=== PATIENT | male | born 1945 | race Caucasian/White ===

== ENCOUNTER → 2017-10-13 15:15 | Outpatient (CLI) | payer MEDICARE, BC, SELFPAY ==
--- NOTE | 2017-10-13 | OV.WND_ITS ---
Progress Note Details Patient Name: Mitchell Galloway Patient Number: [id number] PatientPatientDate: 10/13/2017 Clinician: Lilibeth Zuñiga Clinician Cosigner: Amalia Dawn Physician / Health Program Analyst: Derrick Gardner SUBJECTIVE Chief Complaint This information was obtained from the patient Non-healing wound to right second toe. Allergies carbidopa (Reaction: Increase heart rate.), Coreg (Reaction: Fatigue), iodine ( Reaction: Throat Swelling with Shellfish), Shellfish Containing Products (Reaction: unknown), shellfish derived (Reaction: Shrip/throat swelling), Sudafed (Reaction: Delirium), tomato, Zosyn ( Reaction: Rash Hive) HPI This information was obtained from the patient 10/13/17. Seen by Nicolas Gardner PA-C. This type II diabetic patient is new to our clinic and presents with an ulcer of the right 2nd toe. He explains that he has various reasons and conditions that make him very fatigued when he has to [place] [employer] to [place] and is hoping that we can heal his wound with monthly or less frequent visits. Family History This information was obtained from the patient Cancer - Mother, Father, Lung Disease - Mother Social History This information was obtained from the patient Former smoker - 1966, Caffeine Use - Diet coke occasional, Children - 1, Lives in - Private home, Marital Status - , Retired - Recreational therapist, Transport Concerns - Lives on [facility], [place] Past Medical History This information was obtained from the patient Patient has a medical history of: Type II Diabetes PTSD Charcot Foot Neuropathy Hypertension Gastro Esoph. Reflux Disease (GERD) Lumbago Cardiac Arrest Colon Polyps Hyperlipidemia A-fib Lumbar Spinal stenosis Esophagitis Benign Prostate Hyperplasia (BPH) Surgical History This information was obtained from the patient Patient has a surgical history of: Right rotator cuff repair Appendectomy Pacemaker/Defibrillator Bilateral knee arthroscopy Abdominal hernia repair Complaints and Symptoms This information was obtained from the patient Patient complains of: Neurological: Loss of Protective Sensation Prior Wound History: Drainage Patient denies complaints or symptoms related to: Ear/Nose/Mouth/Throat: Hearing Loss / Aid Gastrointestinal (GI): Difficulty Swallowing, Loss of Appetite Musculoskeletal: Muscle Weakness Neurological: Paralysis Respiratory: Oxygen Use General Notes: Up to date Medications acetaminophen 325 mg tablet oral 1 1 tablet oral every 4-6 hours as needed tramadol 50 mg tablet oral 2 2 tablet oral every 6 hours as needed Jantoven 5 mg tablet oral tablet oral once daily gabapentin 300 mg capsule oral 1 1 capsule oral twice daily metformin 1,000 mg tablet oral 1 1 tablet oral once daily atorvastatin 40 mg tablet oral tablet oral once daily finasteride 5 mg tablet oral 1 1 tablet oral once daily metoprolol succinate ER 50 mg tablet,extended release 24 hr oral 1 1 tablet extended release 24 hr oral twice daily polyethylene glycol (bulk) 100 % powder miscellaneous 1 1 powder miscellaneous once daily torsemide 20 mg tablet oral 1 1 tablet oral multivitamin tablet oral 1 1 tablet oral once daily melatonin 5 mg capsule oral 1 1 capsule oral once daily Aspir-81 81 mg tablet,delayed release oral tablet,delayed release (DR/EC) oral once daily potassium chloride ER 8 mEq tablet,extended release oral 1 1 tablet extended release oral twice daily pantoprazole 40 mg tablet,delayed release oral 1 1 tablet,delayed release (DR/EC ) oral twice daily zolpidem 5 mg tablet oral 1 1 tablet oral once daily escitalopram 10 mg tablet oral 1 1 tablet oral twice daily doxycycline hyclate 100 mg tablet oral 1 1 tablet oral twice daily for 7 days gentamicin 0.1 % topical ointment topical 1 1 ointment topical each dressing change isosorbide mononitrate ER 30 mg tablet,extended release 24 hr oral tablet extended release 24 hr oral once daily Vitamin D3 1,000 unit tablet oral 1 1 tablet oral once daily OBJECTIVE Constitutional Vital signs reviewed and noted. Well developed, lucid, and in no acute distress. . Height/Length: 70 in (177.8 cm), BMI: 0, Temperature: 98 ?F (36.67 ?C), Pulse: 70 bpm, Respiratory Rate: 18 breaths/min, Blood Pressure: 152/86 mmHg, Pulse Oximetry: 97 %. Ears, Nose, Mouth, and Throat: Grossly intact. Respiratory: No respiratory distress. Even respirations and without use of accessory muscles.. Integumentary (Hair, Skin) Refer to appropriate clinician wound documentation for this visit; ulcer extends to subcutaneous fat layer. . Wound #1 Right Second Toe is an acute [place] Grade 2 Diabetic Ulcer and has received a status of Not Healed. Initial wound encounter measurements are 0.5cm length x 0.6cm width x 0.3cm depth, with an area of 0.3 sq cm and a volume of 0.09 cubic cm. No tunneling has been noted. No sinus tract has been noted. No undermining has been noted. There is a moderate amount of sero-sanguineous drainage noted which has no odor. The patient reports a wound pain of level 0/10. The wound margin is callus. Wound bed has Yes epithelialization, No eschar, No slough, Yes bright red, pink, firm granulation. The periwound skin texture is normal. The periwound skin moisture is normal. The periwound skin color is normal. The temperature of the periwound skin is WNL. Periwound skin does not exhibit signs or symptoms of infection. Local Pulse is Doppler. Psychiatric: Judgement and insight: Normal affect with normal thought pattern. Alert and oriented 3/3. Memory grossly intact.. Normal affect. Mood appropriate.. ASSESSMENT Active Problems ICD-10 (Encounter Diagnosis) L97.512 - Non-pressure chronic ulcer of other part of right foot with fat layer exposed (Encounter Diagnosis) L08.9 - Local infection of the skin and subcutaneous tissue, unspecified (Encounter Diagnosis) E11.621 - Type 2 diabetes mellitus with foot ulcer PROCEDURES Wound #1 Wound #1 (Diabetic Ulcer) is located on the right second toe. A skin/ subcutaneous tissue level surgical debridement with a total area debrided of 0.3 sq cm was performed by Derrick Gardner PA. Subcutaneous was removed along with devitalized tissue: callus and slough. The following instrument(s) were used: curette, forceps, and scissors. No anesthetic was required due to loss of sensation. A time out was conducted prior to the start of the procedure. A minimal amount of bleeding was controlled with n/a. The procedure was tolerated well with a loss of sensation throughout and a loss of sensation following the procedure. Post Debridement Measurements: 0.5cm length x 0.6cm width x 0.4cm depth; with an area of 0.3 sq cm and a volume of 0.12 cubic cm; Additional Information Muscle fascia or bone removed and sent to pathology?: No PLAN Wound Orders: Wound #1 Right Second Toe Cleanser Cleanse Wound: - Normal saline in clinic. May use distilled water at home. May Shower. - Please avoid getting tap water in wound. May use cast protector purchased from pharmacy while showering. Topical Treatments Antibiotic/Antimicrobial Ointment/Cream. - Gentamicin ointment Dressings Primary dressing: - Foam Cover and secure with: - Tape Change Dressing: - Every other day Additional Orders: Off-Loading Keep weight off: - Right foot Follow-Up Appointments Return Appointment: - - Three weeks Other information: If you develop fever, chills, increased pain, drainage, redness or swelling please call our office. If after hours, respond to the ER. Should you experience any significant changes in your wound(s) or have any questions regarding your home care instructions please contact the wound center @ [phone]. If after hours, contact your primary care physician or go to the hospital emergency room. Scribing Attestation I attest, as the nurse, that I scribed these orders for the physician. Laboratory: Bacteria identified in Wound by Culture General Notes: We will call with any positive wound cultures requiring oral antibiotics. I've reviewed the clinician's documentation and agree with the evaluation and plan as written. Greater than 45 minutes were spent [id number] with the patient. During this encounter and over 50% of that time was spent on education, counseling and coordination of care. We discussed the etiology of the patient's condition, educated the patient about healing expectations, and coordinated care going forward. We discussed how his best chances of healing and avoiding amputation and other complications are to come to our clinic as directed, which at this time is recommended to be every 7-10 days. He has elected to come back in 3 weeks. In addition the patient's ulcer demonstrates evidence of non-viable devitalized tissue which benefits from sharp debridement. Electronic Signature(s) Signed By: Date: Nicolas Gardner 10/16/2017 22:08:02 Entered By: Nicolas Gardner on 10/16/2017 21:40:12
== END ==
PROVIDERS: PCP Student in an Organized Health Care Education/Training Program; Visit Provider Physician Assistant
DX: E11.621 Type 2 diabetes mellitus with foot ulcer (principal); L97.512 Non-pressure chronic ulcer of other part of right foot with fat layer exposed; L08.9 Local infection of the skin and subcutaneous tissue, unspecified
CPT/HCPCS: 11042; 87070; 87075; 87077; 87147; 87186; 87205; 99213

== ENCOUNTER → 2017-11-02 12:59 | Outpatient (CLI) | payer MEDICARE, BC, SELFPAY ==
--- NOTE | 2017-11-02 | OV.WND_ITS ---
Progress Note Details Patient Name: Mitchell Galloway Patient Number: [id number] PatientPatientDate: 11/02/2017 Clinician: Lilibeth Zuñiga Clinician Cosigner: Gayatri Fuller Physician / Speech Writer: Elliott Krause SUBJECTIVE Chief Complaint This information was obtained from the patient Non-healing wound to right second toe. Allergies carbidopa (Reaction: Increase heart rate.), Coreg (Reaction: Fatigue), iodine ( Reaction: Throat Swelling with Shellfish), Shellfish Containing Products (Reaction: unknown), shellfish derived (Reaction: Shrip/throat swelling), Sudafed (Reaction: Delirium), tomato, Zosyn ( Reaction: Rash Hive) HPI This information was obtained from the patient 11/02/17. Seen by Dr. Krause. The patient does not report pain or significant drainage associated with the chronic right 2nd toe diabetic ulcer since his last visit. Of note, he sometimes walks around his property without wearing shoes and is also only able to travel to our appointments every 3 weeks due to fatigue associated with the journey. 10/13/17. Seen by Nicolas Gardner PA-C. This type II diabetic patient is new to our clinic and presents with an ulcer of the right 2nd toe. He explains that he has various reasons and conditions that make him very fatigued when he has to travel by [employer] to [place] and is hoping that we can heal his wound with monthly or less frequent visits. Past Medical History This information was obtained from the patient Patient has a medical history of: Type II Diabetes PTSD Charcot Foot Neuropathy Hypertension Gastro Esoph. Reflux Disease (GERD) Lumbago Cardiac Arrest Colon Polyps Hyperlipidemia A-fib Lumbar Spinal stenosis Esophagitis Benign Prostate Hyperplasia (BPH) Complaints and Symptoms This information was obtained from the patient Patient complains of: General Notes: I have reviewed and concur with the Review of Systems and Past Family Social History documents completed by the clinician, I have reviewed and concur with the Wound Assessment document completed by the clinician Integumentary (Hair/Skin/Nails): Open Sore Musculoskeletal: Deformities Neurological: Loss of Protective Sensation Prior Wound History: Drainage Patient denies complaints or symptoms related to: Cardiovascular (Central/Peripheral): Intermittent Claudication, Lower extremity (leg) resting pain, Lower extremity (leg) swelling Constitutional Symptoms (General Health): Chills, Fever Ear/Nose/Mouth/Throat: Hearing Loss / Aid Gastrointestinal (GI): Difficulty Swallowing, Loss of Appetite Hematologic/Lymphatic: Bleeding / Clotting Disorders, Bleeding Tendency Musculoskeletal: Muscle Weakness Neurological: Paralysis Respiratory: Oxygen Use OBJECTIVE Constitutional BP elevated; Afebrile; Alert and in no distress. Well developed. Alert. Clean appearing.. Height/Length: 70 in (177.8 cm), Weight: 241.4 lbs (109.73 kgs), BMI: 34.6, Temperature: 97.3 ?F (36.28 ?C), Pulse: 71 bpm, Respiratory Rate: 18 breaths/min, Blood Pressure: 154/93 mmHg, Pulse Oximetry: 100 %. Ears, Nose, Mouth, and Throat: No clinically significant hearing loss on informal examination. Respiratory: No respiratory distress. Even respirations and without use of accessory muscles.. Cardiovascular: Affected extremity exhibits no peripheral edema or cyanosis, is warm, and is well perfused. Capillary refill is less than 2 seconds. Musculoskeletal: Significant plantar flexion of right 2nd toe. Integumentary (Hair, Skin) No periwound erythema, warmth, or significant drainage. No periwound rashes appreciated or noted otherwise.. Refer to appropriate clinician wound documentation for this visit; right 2nd toe ulcer extends to subcut with base partially covered with pink granulation, remainder fibrin and slough; approx 1cm metal wire was removed from the ulcer base today also. Significant amount of callus in the periulcer area. Wound #1 Right Second Toe is an acute [place] Grade 2 Diabetic Ulcer and has received a status of Not Healed. Subsequent wound encounter measurements are 0.1cm length x 0.1cm width x 0.4cm depth, with an area of 0.01 sq cm and a volume of 0.004 cubic cm. No tunneling has been noted. No sinus tract has been noted. No undermining has been noted. There is a small amount of sero-sanguineous drainage noted which has no odor. The patient reports a wound pain of level 0/10. The wound margin is callus. Wound bed has Yes epithelialization, No eschar, Yes slough, Yes bright red, pink, firm granulation. The periwound skin texture is normal. The periwound skin moisture is normal. The periwound skin color is normal. The temperature of the periwound skin is WNL. Periwound skin does not exhibit signs or symptoms of infection. Local Pulse is Doppler. Neurological: Cranial nerves grossly intact with symmetric function normal by informal observation.. ASSESSMENT Active Problems ICD-10 (Encounter Diagnosis) L97.512 - Non-pressure chronic ulcer of other part of right foot with fat layer exposed (Encounter Diagnosis) E11.621 - Type 2 diabetes mellitus with foot ulcer (Encounter Diagnosis) M20.61 - Acquired deformities of toe(s), unspecified, right foot (Encounter Diagnosis) S90.454A - Superficial foreign body, right lesser toe(s), initial encounter PROCEDURES Wound #1 Wound #1 (Diabetic Ulcer) is located on the right second toe. A skin/ subcutaneous tissue level surgical debridement with a total area debrided of 0.12 sq cm was performed by Elliott Krause MD. Subcutaneous was removed along with devitalized tissue: callus, slough, and foreign body. The following instrument(s) were used: curette and forceps. Pain control was achieved using 4% Lido. A time out was conducted prior to the start of the procedure. A minimal amount of bleeding was controlled with n/a. The procedure was tolerated well with a pain level of 0 throughout and a pain level of 0 following the procedure. Post Debridement Measurements: 0.3cm length x 0.4cm width x 0.5cm depth; with an area of 0.12 sq cm and a volume of 0.06 cubic cm; Additional Information Muscle fascia or bone removed and sent to pathology?: No PLAN Wound Orders: Wound #1 Right Second Toe Cleanser Cleanse Wound: - Normal saline in clinic. May use distilled water at home. May Shower. - Please avoid getting tap water in wound. May use cast protector purchased from pharmacy while showering. Topical Treatments Antibiotic/Antimicrobial Ointment/Cream. - Gentamicin ointment Dressings Primary dressing: - Foam Cover and secure with: - Tape Change Dressing: - Every other day Additional Orders: Off-Loading Keep weight off: - Right foot Follow-Up Appointments Return Appointment: - - Three weeks Other information: If you develop fever, chills, increased pain, drainage, redness or swelling please call our office. If after hours, respond to the ER. Should you experience any significant changes in your wound(s) or have any questions regarding your home care instructions please contact the wound center @ [phone]. If after hours, contact your primary care physician or go to the hospital emergency room. Scribing Attestation I attest, as the nurse, that I scribed these orders for the physician. General Notes: Please look to purchase toe lifts from pharmacy to help offload toe I've reviewed the clinician's documentation and agree with the evaluation and plan as written. In addition, the patient's ulcer demonstrates evidence of non-viable devitalized tissue which will continue to benefit from sharp debridement to help promote granulation and expedite healing. Also, the patient's been counseled regarding offloading measures and advised to wear a forefoot offloading shoe to help reduce callus formation which is being caused by the significant plantarflexion toe deformity. Considering the wire I removed from the ulcer base, I've taken a deep culture and will consider starting and antibiotic pending the results. Electronic Signature(s) Signed By: Date: Elliott Krause MD 11/02/2017 15:39:04 Entered By: Elliott Krause on 11/02/2017 14:25:36
== END ==
PROVIDERS: PCP Student in an Organized Health Care Education/Training Program; Visit Provider Internal Medicine
DX: E11.621 Type 2 diabetes mellitus with foot ulcer (principal); L97.512 Non-pressure chronic ulcer of other part of right foot with fat layer exposed; M20.61 Acquired deformities of toe(s), unspecified, right foot
CPT/HCPCS: 11042; 87070; 87075; 87077; 87147; 87186; 87205

== ENCOUNTER → 2017-11-23 13:19 | Outpatient (CLI) | payer MEDICARE, BC, SELFPAY ==
--- NOTE | 2017-11-23 | OV.WND_ITS ---
Progress Note Details Patient Name: Mitchell Galloway Patient Number: [id number] PatientPatientDate: 11/23/2017 Clinician: Lilibeth Zuñiga Clinician Cosigner: Gayatri Fuller Physician / Jewelry Coater: Elliott Krause SUBJECTIVE Chief Complaint This information was obtained from the patient Non-healing wound to right second toe. Allergies carbidopa (Reaction: Increase heart rate.), Coreg (Reaction: Fatigue), iodine ( Reaction: Throat Swelling with Shellfish), Shellfish Containing Products (Reaction: unknown), shellfish derived (Reaction: Shrip/throat swelling), Sudafed (Reaction: Delirium), tomato, Zosyn ( Reaction: Rash Hive) HPI This information was obtained from the patient 11/23/17. Seen by Dr. Krause. The patient does not report pain or significant drainage associated with the chronic right 2nd toe diabetic ulcer since his last visit. 11/02/17. Seen by Dr. Krause. The patient does not report pain or significant drainage associated with the chronic right 2nd toe diabetic ulcer since his last visit. Of note, he sometimes walks around his property without wearing shoes and is also only able to travel to our appointments every 3 weeks due to fatigue associated with the journey. 10/13/17. Seen by Nicolas Gardner PA-C. This type II diabetic patient is new to our clinic and presents with an ulcer of the right 2nd toe. He explains that he has various reasons and conditions that make him very fatigued when he has to travel [place] [employer] to [place] and is hoping that we can heal his wound with monthly or less frequent visits. Past Medical History This information was obtained from the patient Patient has a medical history of: Type II Diabetes PTSD Charcot Foot Neuropathy Hypertension Gastro Esoph. Reflux Disease (GERD) Lumbago Cardiac Arrest Colon Polyps Hyperlipidemia A-fib Lumbar Spinal stenosis Esophagitis Benign Prostate Hyperplasia (BPH) Complaints and Symptoms This information was obtained from the patient Patient complains of: General Notes: I have reviewed and concur with the Review of Systems and Past Family Social History documents completed by the clinician, I have reviewed and concur with the Wound Assessment document completed by the clinician Integumentary (Hair/Skin/Nails): Open Sore Musculoskeletal: Deformities Neurological: Loss of Protective Sensation Prior Wound History: Drainage Patient denies complaints or symptoms related to: Cardiovascular (Central/Peripheral): Intermittent Claudication, Lower extremity (leg) resting pain, Lower extremity (leg) swelling Constitutional Symptoms (General Health): Chills, Fever Ear/Nose/Mouth/Throat: Hearing Loss / Aid Gastrointestinal (GI): Difficulty Swallowing, Loss of Appetite Hematologic/Lymphatic: Bleeding / Clotting Disorders, Bleeding Tendency Musculoskeletal: Muscle Weakness Neurological: Paralysis Respiratory: Oxygen Use OBJECTIVE Constitutional BP elevated; Afebrile; Alert and in no distress. Well developed. Alert. Clean appearing.. Height/Length: 70 in (177.8 cm), Weight: 241.4 lbs (109.73 kgs), BMI: 34.6, Temperature: 98.3 ?F (36.83 ?C), Pulse: 71 bpm, Respiratory Rate: 18 breaths/min, Blood Pressure: 154/93 mmHg, Pulse Oximetry: 97 %. Ears, Nose, Mouth, and Throat: No clinically significant hearing loss on informal examination. Respiratory: No respiratory distress. Even respirations and without use of accessory muscles.. Integumentary (Hair, Skin) No periwound erythema, warmth, or significant drainage. No periwound rashes appreciated or noted otherwise.. Refer to appropriate clinician wound documentation for this visit; right 2nd toe ulcer extends to subcut with base partially covered with pink granulation, remainder fibrin and slough. Moderate amount of callus in the periulcer area. Wound #1 Right Second Toe is an acute [place] Grade 2 Diabetic Ulcer and has received a status of Not Healed. Subsequent wound encounter measurements are 0.3cm length x 0.3cm width x 0.2cm depth, with an area of 0.09 sq cm and a volume of 0.018 cubic cm. No tunneling has been noted. No sinus tract has been noted. Undermining has been noted at 1:00 and ends at 1:00 with a maximum distance of 0.3cm. There is a small amount of sero- sanguineous drainage noted which has no odor. The patient reports a wound pain of level 0/10. The wound margin is callus. Wound bed has Yes epithelialization, No eschar , Yes slough, Yes bright red, pink, firm granulation. The periwound skin moisture is normal. The periwound skin color is normal. The periwound skin exhibited: Callus. The temperature of the periwound skin is WNL. Periwound skin does not exhibit signs or symptoms of infection. Local Pulse is Doppler. Neurological: Cranial nerves grossly intact with symmetric function normal by informal observation.. ASSESSMENT Active Problems ICD-10 (Encounter Diagnosis) L97.512 - Non-pressure chronic ulcer of other part of right foot with fat layer exposed (Encounter Diagnosis) E11.621 - Type 2 diabetes mellitus with foot ulcer PROCEDURES Wound #1 Wound #1 (Diabetic Ulcer) is located on the right second toe. A skin/ subcutaneous tissue level surgical debridement with a total area debrided of 0.28 sq cm was performed by Elliott Krause MD. Subcutaneous was removed along with devitalized tissue: callus and exudate. The following instrument(s) were used: curette. Pain control was achieved using 4% Lido. A time out was conducted prior to the start of the procedure. A minimal amount of bleeding was controlled with n/a. The procedure was tolerated well with a pain level of 0 throughout and a pain level of 0 following the procedure. Post Debridement Measurements: 0.4cm length x 0.7cm width x 0.3cm depth; with an area of 0.28 sq cm and a volume of 0.084 cubic cm; Additional Information Muscle fascia or bone removed and sent to pathology?: No PLAN Wound Orders: Wound #1 Right Second Toe Cleanser Cleanse Wound: - Normal saline in clinic. May use distilled water at home. May Shower. - Please avoid getting tap water in wound. May use cast protector purchased from pharmacy while showering. Topical Treatments Antibiotic/Antimicrobial Ointment/Cream. - Triple antibiotic ointment ointment Dressings Primary dressing: - Foam Cover and secure with: - Tape Change Dressing: - Every other day Additional Orders: Off-Loading Keep weight off: - Right foot Follow-Up Appointments Return Appointment: - - Three weeks Other information: If you develop fever, chills, increased pain, drainage, redness or swelling please call our office. If after hours, respond to the ER. Should you experience any significant changes in your wound(s) or have any questions regarding your home care instructions please contact the wound center @ [phone]. If after hours, contact your primary care physician or go to the hospital emergency room. Scribing Attestation I attest, as the nurse, that I scribed these orders for the physician. I've reviewed the clinician's documentation and agree with the evaluation and plan as written. In addition, the patient's ulcer demonstrates evidence of non-viable devitalized tissue which will continue to benefit from sharp debridement to help promote granulation and expedite healing. Electronic Signature(s) Signed By: Date: Elliott Krause MD 11/24/2017 07:58:24 Entered By: Elliott Krause on 11/24/2017 07:34:34
== END ==
PROVIDERS: PCP Student in an Organized Health Care Education/Training Program; Visit Provider Internal Medicine
DX: E11.621 Type 2 diabetes mellitus with foot ulcer (principal); L97.512 Non-pressure chronic ulcer of other part of right foot with fat layer exposed
CPT/HCPCS: 11042